=== PATIENT | male | born 1980 | race Caucasian/White ===

== ENCOUNTER 2017-12-22 08:36 | Emergency (ER) | payer OTHER ==
[2017-12-22] MEDS ORDERED: DEXAMETHASONE 10 MG/ML VIAL PO STA (10:03)
--- NOTE | 2017-12-22 10:06 | ED Physician Documentation ---
PD HPI CHEST PAIN - Stated complaint Stated Complaint: CHEST PX, CHEST POUNDING,BACK PX, - Chief complaint Chief Complaint: Cardiac - History obtained from History obtained from: Patient - History of Present Illness Timing - onset: How many days ago (3) Timing - onset during: Light activity Timing - duration: Days (3) Timing - details: Gradual onset, Still present Quality: Pressure, Tightness Location: Substernal, Left chest Radiation: Back Improved by: Rest Worsened by: Exertion, Inspiration Associated symptoms: Shortness of air, Cough Similar symptoms before: Has not had sx before Recently seen: Not recently seen - Additional information Additional information: 37-year-old male has had cough and congestion for the past several days and he has developed some intermittent shortness of breath and chest pain and when he has this happen to him he has an elevation of of his heart rate. He is watching this on his Fitbit. He states that it is difficult for him to go full deep breath secondary to central chest pain with breathing. He does have children at home that are all sick with similar. He states he did have a bit of a sore throat yesterday does not seem to have that today and feels that he is intermittently been febrile. Review of Systems Constitutional: reports: Fever, Chills, Myalgias Eyes: denies: Decreased vision Ears: reports: Ear pain Nose: reports: Rhinorrhea / runny nose, Congestion Throat: reports: Sore throat Cardiac: reports: Chest pain / pressure, Palpitations. denies: Pedal edema, Calf pain Respiratory: reports: Dyspnea, Cough GI: denies: Abdominal Pain, Nausea, Vomiting : denies: Dysuria, Frequency PD PAST MEDICAL HISTORY - Past Medical History Past Medical History: No - Past Surgical History Past Surgical History: Yes General: Other - Present Medications Home Medications: Ambulatory Orders Medication Instructions Recorded Confirmed Azithromycin [Zithromax] 250 mg PO DAILY #6 tablet 12/22/17 - Allergies Allergies/Adverse Reactions: Allergies Allergy/AdvReac Type Severity Reaction Status Date / Time No Known Drug Allergies Allergy Verified 12/22/17 08:45 - Social History Does the pt smoke?: No Smoking Status: Never smoker Does the pt drink ETOH?: Yes Does the pt have substance abuse?: No - Immunizations Immunizations are current?: Yes - POLST Patient has POLST: No PD ED PE NORMAL - Vitals Vital signs reviewed: Yes (tachy and hypertensive ) - General General: Alert and oriented X 3, No acute distress, Well developed/nourished - HEENT HEENT: Atraumatic, PERRL, EOMI, Other (The right TM is inflamed along the umbo with rounding of the umbo. The left is clear the pharynx is with 2+ cyptic tonsils. ) - Neck Neck: Supple, no meningeal sign, No bony TTP - Cardiac Cardiac: RRR, No murmur - Respiratory Respiratory: No respiratory distress, Clear bilaterally - Abdomen Abdomen: Soft, Non tender - Back Back: No CVA TTP, No spinal TTP - Derm Derm: Normal color, Warm and dry, No rash, Other (warm to the touch ) - Extremities Extremities: No deformity, No edema - Neuro Neuro: Alert and oriented X 3, capacity planning engineer 2-12 intact, No motor deficit, No sensory deficit, Normal speech Eye Opening: Spontaneous Motor: Obeys Commands Verbal: Oriented GCS Score: 15 - Psych Psych: Normal mood, Normal affect Results - Vitals Vitals: Vital Signs - 24 hr 12/22/17 08:40 Temperature 37.2 C Heart Rate 101 H Respiratory 18 Rate Blood Pressure 126/87 H O2 Saturation 98 Oxygen O2 Source Room air - EKG (time done) 0849 Rate: Rate (enter#) (102) Rhythm: Sinus tachycardia Ischemia: ST elevation c/w repol Compare to prior EKG: Old EKG unavailable Computer interpretation: Agree with computer - Rads (name of study) 2 veiw chest Radiology: Prelim report reviewed (Impression: Normal two-view chest radiography.), EMP read indepedently, See rad report PD MEDICAL DECISION MAKING - ED course Complexity details: reviewed results, re-evaluated patient, considered differential, d/w patient ED course: 37-year-old male with cough and congestion has developed some chest pain and difficulty getting a full deep breath and has otitis on examination he is administered dexamethasone 10 mg orally and we will place him on some antibiotic. An x-ray of his chest is obtained. Departure - Departure Disposition: 01 Home, Self Care Clinical Impression: Otitis media Qualifiers: Otitis media type: suppurative Chronicity: acute Laterality: right Recurrence: not specified as recurrent Spontaneous tympanic membrane rupture: without spontaneous rupture Qualified Code(s): H66.001 - Acute suppurative otitis media without spontaneous rupture of ear drum, right ear Condition: Stable Instructions: ED Otitis Media Acute Adult Follow-Up: ELPIDIO CLIFTON [Primary Care Provider] - Prescriptions: Azithromycin [Zithromax] 250 mg PO DAILY #6 tablet
--- NOTE | 2017-12-22 10:48 | XRAY Report ---
Reason: soa chest pain Procedure Date: 12/22/2017 Accession Number: [id number] / [id number] Procedure: XR - Chest 2 View X-Ray CPT Code: 11506 FULL RESULT: EXAM: CHEST RADIOGRAPHY EXAM DATE: 12/22/2017 10:34 AM. CLINICAL HISTORY: Soa chest pain. COMPARISON: None. TECHNIQUE: 2 views. FINDINGS: Lungs/Pleura: No focal opacities evident. No pleural effusion. No pneumothorax. Normal volumes. Mediastinum: Heart and mediastinal contours are unremarkable. Other: None. IMPRESSION: Normal 2-view chest radiography. [facility]
[2017-12-22 11:58] VITALS: BP 118/80
== END 2017-12-22 10:55 | disposition home or self-care (01) ==
LOC: ED 08:36
DX: H66.001 Acute suppurative otitis media without spontaneous rupture of ear drum, right ear (principal); R00.0 Tachycardia, unspecified
CPT/HCPCS: 71046; 93005; 99283